=== PATIENT | male | born 1980 | race Caucasian/White ===

== ENCOUNTER 2018-12-10 10:22 | Emergency (ER) | payer SELFPAY ==
[~2018-12-10] VITALS: Ht 182.9 cm; Wt 127.0 kg
[2018-12-10 10:22] VITALS: Ht 182.9 cm; Wt 127.0 kg
[2018-12-10 11:05] LABS: BASOPHIL % 0.5 % (0-2); PLATELET COUNT 345 x10^3mcL (130-400); RED CELL DISTRIBUTION WIDTH 13.5 % (11.5-14.5)
[2018-12-10 11:20] LABS: CARBON DIOXIDE 28.1 mmol/L (21-32); CHLORIDE SERUM 107 mmol/L (98-107); CREATININE SERUM 0.9 mg/dL (0.7-1.3); GFR1 > 60 mL/min; GLUCOSE SERUM 108 mg/dL (74-106); POTASSIUM SERUM 4.8 mmol/L (3.5-5.1); SODIUM SERUM 141 mmol/L (136-145)
[2018-12-10 11:25] LABS: ALKALINE PHOSPHATASE 76 U/L (46-116); ALT/SGPT 66 U/L (16-63); AST/SGOT 19 U/L (15-37); BILIRUBIN TOTAL 0.29 mg/dL (0.20-1.00); LIPASE 111 IU/L (73-393); TOTAL PROTEIN, SERUM 6.8 g/dL (6.4-8.2)
[2018-12-10 11:34] LABS: ALBUMIN 3.2 g/dL (3.4-5.0)
[2018-12-10 12:16] VITALS: BP 93/56
== END 2018-12-10 12:16 | disposition home or self-care (01) ==
LOC: ED 10:22
PROVIDERS: Emergency Medicine
DX: K80.20 Calculus of gallbladder without cholecystitis without obstruction (principal); F17.210 Nicotine dependence, cigarettes, uncomplicated; Z71.6 Tobacco abuse counseling
CPT/HCPCS: 99406; J1885; J2405